=== PATIENT | female | born 1950 | race Caucasian/White ===

== ENCOUNTER 2022-12-03 07:42 | Emergency (ER) | payer OTHER ==
[~2022-12-03] VITALS: Ht 165.1 cm; Wt 77.4 kg
[2022-12-03 07:56] VITALS: BP 140/70
[2022-12-03] MEDS ORDERED: ACETAMINOPHEN 500 MG TAB PO ONE (09:15)
[2022-12-03] MEDS ORDERED: ALBU108A5 IN (09:38)
[2022-12-03] MEDS ORDERED: BENZ1LOZ3 MT (09:38)
[2022-12-03] MEDS ORDERED: ACET1CAP14 PO (09:38)
== END 2022-12-03 09:45 | disposition home or self-care (01) ==
LOC: ER 07:42
DX: U07.1 COVID-19 (principal); E03.9 Hypothyroidism, unspecified; Z79.899 Other long term (current) drug therapy
CPT/HCPCS: 36415; 87070; 87426; 87804; 87880

== ENCOUNTER 2023-08-14 06:54 | Emergency (ER) | payer OTHER ==
[~2023-08-14] VITALS: Ht 162.6 cm; Wt 81.7 kg
[~2023-08-14 06:54] MED LIST: ACET1CAP14 PO; ALBU108A5 IN; BENZ1LOZ12 MT
[2023-08-14 07:38] VITALS: BP 160/59; PULSE 84; RESP 16; TEMP 98.1; O2SAT 97
[2023-08-14] MEDS ORDERED: DexAMETHasone SOD PHOS 10MG/1ML VIAL INJ IM ONE (07:45)
[2023-08-14 08:06] LABS: COVID19 ANTIGEN SOFIA FIA NEGATIVE (NEGATIVE); Rapid Influenza A Negative (Negative); Rapid Influenza B Negative (Negative)
[2023-08-14 08:16] LABS: Rapid Strep A Screen-Throat Negative
[2023-08-14] MEDS ORDERED: IBUP-1454 PO (08:38)
[2023-08-14] MEDS ORDERED: ACET500T58 PO (08:38)
== END 2023-08-14 08:43 | disposition home or self-care (01) ==
LOC: ER 06:54
DX: J02.8 Acute pharyngitis due to other specified organisms (principal); B97.89 Other viral agents as the cause of diseases classified elsewhere; E03.9 Hypothyroidism, unspecified; Z79.1 Long term (current) use of non-steroidal anti-inflammatories (NSAID); Z79.899 Other long term (current) drug therapy; Z20.822 Contact with and (suspected) exposure to COVID-19
CPT/HCPCS: 36415; 87070; 87426; 87804; 87880; 96372; 99283; J1100